=== PATIENT | female | born 1975 | race Caucasian/White ===

== ENCOUNTER 2017-08-10 17:04 | Emergency (ER) | payer OTHER ==
[2017-08-10 17:16] VITALS: BP 134/49
--- NOTE | 2017-08-10 17:42 | UC ---
Throat Pain/Nasal Jose Alberto HPI - HPI Summary HPI Summary: Five days of sinus congestion, facial pressure, cough. No fever. - History of Current Complaint Chief Complaint: UCRespiratory Stated Complaint: SINUS CONGESTION Time Seen by Provider: 08/10/17 17:04 Hx Obtained From: Patient Hx Last Menstrual Period: mirena Onset/Duration: Gradual Onset, Lasting Days Severity: Moderate Cough: Nonproductive Associated Signs & Symptoms: Positive: Sinus Discomfort, Nasal Discharge - Epiglottits Risk Factors Epiglottis Risk Factors: Negative - Allergies/Home Medications Allergies/Adverse Reactions: Allergies Allergy/AdvReac Type Severity Reaction Status Date / Time Tramadol [From Ultram] AdvReac Intermediate Vomiting Verified 08/10/17 17:16 Home Medications: Home Medications Gabapentin CAP(*) [Neurontin 300 CAP(*)] 300 mg PO BID 08/10/17 [History Confirmed 08/10/17] PMH/Surg Hx/FS Hx/Imm Hx Previously Healthy: Yes - Surgical History Surgical History: Yes Surgery Procedure, Year, and Place: CHOLECYSTECTOMY--?2006. LEEP - Family History Known Family History: Positive: None - Social History Occupation: Employed Full-time Lives: With Family Alcohol Use: None Substance Use Type: None Smoking Status (MU): Never Smoked Tobacco Have You Smoked in the Last Year: No Review of Systems Constitutional: Negative Skin: Negative Eyes: Negative ENT: Nasal Discharge, Sinus Congestion, Sinus Pain/Tenderness Respiratory: Cough Cardiovascular: Negative Gastrointestinal: Negative Genitourinary: Negative Motor: Negative Neurovascular: Negative Musculoskeletal: Negative Neurological: Negative Psychological: Negative Is Patient Immunocompromised?: No All Other Systems Reviewed And Are Negative: Yes Physical Exam Triage Information Reviewed: Yes Appearance: Well-Appearing, No Pain Distress, Well-Nourished Vital Signs: Initial Vital Signs Temp 97.7 F 08/10/17 17:11 Pulse 74 08/10/17 17:11 Resp 18 08/10/17 17:11 BP 134/49 08/10/17 17:11 Pulse Ox 97 08/10/17 17:11 Vital Signs Reviewed: Yes Eye Exam: Normal ENT Exam: Normal ENT: Positive: Hearing grossly normal, Nasal congestion, TM bulging, TM dull Dental Exam: Normal Neck exam: Normal Neck: Positive: Supple, Nontender, No Lymphadenopathy Respiratory Exam: Other - cough Respiratory: Positive: Chest non-tender, Lungs clear, Normal breath sounds, No respiratory distress, No accessory muscle use Cardiovascular Exam: Normal Cardiovascular: Positive: RRR, No Murmur, Pulses Normal, Brisk Capillary Refill Abdominal Exam: Normal Musculoskeletal Exam: Normal Neurological Exam: Normal Psychological Exam: Normal Skin Exam: Normal Throat Pain/Nasal Course/Dx - Differential Dx/Diagnosis Differential Diagnosis/HQI/PQRI: Pharyngitis, Sinusitis, URI Provider Diagnoses: sinusitis; upper respiratory infection Discharge - Discharge Plan Condition: Stable Disposition: HOME Prescriptions: Amoxicillin/Clavulanate TAB* [Augmentin TAB 875*] 875 mg PO BID #20 tab Benzonatate CAP* [Tessalon 100 MG CAP*] 100 mg PO TID PRN #15 cap PRN Reason: Cough Patient Education Materials: Sinusitis (ED), Upper Respiratory Infection (ED) Forms: *Work Release Referrals: Matthew Tom MD [Primary Care Provider] -
== END 2017-08-10 17:47 | disposition home or self-care (01) ==
LOC: UCEAST 17:04
DX: J01.90 Acute sinusitis, unspecified (principal)
CPT/HCPCS: 99212; G0463

== ENCOUNTER 2017-10-17 09:46 | Emergency (ER) | payer SELFPAY ==
--- NOTE | 2017-10-17 10:24 | UC ---
Upper Extremity HPI - HPI Summary HPI Summary: 41 year old female presents with complains of left hand blunt trauma. - History of Current Complaint Stated Complaint: LEFT HAND INJURY (wc) Time Seen by Provider: 10/17/17 10:23 Hx Obtained From: Patient Hx Last Menstrual Period: mirena Onset/Duration: Sudden Onset Severity Initially: Moderate Severity Currently: Moderate Pain Scale Used: 0-10 Numeric - 7 Character: Sharp - Allergies/Home Medications Allergies/Adverse Reactions: Allergies Allergy/AdvReac Type Severity Reaction Status Date / Time Tramadol [From Ultram] AdvReac Intermediate Nausea Verified 10/17/17 10:24 Home Medications: Home Medications Control Pill 1 tab PO DAILY 10/17/17 [History Confirmed 10/17/17] PMH/Surg Hx/FS Hx/Imm Hx Previously Healthy: Yes - Surgical History Surgical History: Yes Surgery Procedure, Year, and Place: CHOLECYSTECTOMY--?2006. LEEP - Family History Known Family History: Positive: None - Social History Alcohol Use: None Substance Use Type: None Smoking Status (MU): Never Smoked Tobacco Have You Smoked in the Last Year: No Review of Systems Constitutional: Negative Skin: Negative Eyes: Negative ENT: Negative Respiratory: Negative Cardiovascular: Negative Gastrointestinal: Negative Genitourinary: Negative Motor: Negative Neurovascular: Negative Musculoskeletal: Other: - left hand pain Neurological: Negative Psychological: Negative All Other Systems Reviewed And Are Negative: Yes Physical Exam Triage Information Reviewed: Yes Vital Signs Reviewed: Yes Eye Exam: Normal ENT Exam: Normal Dental Exam: Normal Neck exam: Normal Neck: Positive: 1 Respiratory Exam: Normal Cardiovascular Exam: Normal Abdominal Exam: Normal Musculoskeletal: Positive: Other: - left hand pain Neurological Exam: Normal Psychological Exam: Normal Skin Exam: Normal Upper Extremity Course/Dx - Differential Dx/Diagnosis Provider Diagnoses: left hand pain Discharge - Discharge Plan Condition: Stable Disposition: HOME Prescriptions: Ibuprofen TAB* [Motrin TAB* 800 MG] 800 mg PO Q6H #30 tab Patient Education Materials: Wrist Sprain (ED) Referrals: Elton Diez MD [Medical Doctor] - Liliam Agrawal MD [Primary Care Provider] -
[2017-10-17 10:28] VITALS: BP 143/75
--- NOTE | 2017-10-17 10:51 | RAD ---
INDICATION: Left hand injury. TECHNIQUE: 4 views of the left hand were obtained. FINDINGS: The bones are in normal alignment. No fracture is seen. Joint spaces appear maintained. IMPRESSION: NO EVIDENCE FOR FRACTURE.
== END 2017-10-17 11:08 | disposition home or self-care (01) ==
LOC: UCCORT 09:46
DX: M79.642 Pain in left hand (principal)
CPT/HCPCS: 99213; G0463

== ENCOUNTER 2017-11-24 19:05 | Emergency (ER) | payer OTHER ==
[2017-11-24 19:24] VITALS: BP 126/60
--- NOTE | 2017-11-24 19:49 | UC ---
Dakota Tabor Natalie, scribed for Cornelio Potts MD on 11/24/17 at 1937 . Respiratory Complaint HPI - HPI Summary HPI Summary: The pt is a 42 y/o F presenting to c/o upper respiratory symptoms starting . Pt additionally c/o chest pain and tightness with heavy coughing, "burning" productive cough, nasal drainage, headache, and sinus pressure. Pt denies fever and sore throat. - History of Current Complaint Chief Complaint: UCRespiratory Stated Complaint: URI Hx Obtained From: Patient Hx Last Menstrual Period: 11/13/17 Onset/Duration: Lasting Days - started 11/19/17, Still Present Severity Initially: Moderate Severity Currently: Moderate Character: Cough: Productive Aggravating Factors: Nothing Alleviating Factors: Nothing Associated Signs And Symptoms: Positive: Pleuritic Chest Pain, Nasal Congestion , Hoarseness. Negative: Fever - Allergies/Home Medications Allergies/Adverse Reactions: Allergies Allergy/AdvReac Type Severity Reaction Status Date / Time Tramadol [From Ultram] AdvReac Intermediate Nausea Verified 11/24/17 19:24 PMH/Surg Hx/FS Hx/Imm Hx - Surgical History Surgical History: Yes Surgery Procedure, Year, and Place: CHOLECYSTECTOMY--?2006. LEEP - Family History Known Family History: Positive: Cardiac Disease, Hypertension - Social History Alcohol Use: None Substance Use Type: None Smoking Status (MU): Never Smoked Tobacco Have You Smoked in the Last Year: No - Immunization History Most Recent Influenza Vaccination: Not the 2017/2017 Season Review of Systems ENT: Nasal Discharge, Sinus Congestion Respiratory: Cough Cardiovascular: Chest Pain - and tightness Neurological: Headache All Other Systems Reviewed And Are Negative: Yes Physical Exam Triage Information Reviewed: Yes Appearance: Well-Appearing, No Pain Distress Vital Signs: Initial Vital Signs Temp 98.0 F 11/24/17 19:19 Pulse 99 11/24/17 19:19 Resp 18 11/24/17 19:19 BP 126/60 11/24/17 19:19 Pulse Ox 99 11/24/17 19:19 Vital Signs Reviewed: Yes Eyes: Positive: Conjunctiva Clear ENT: Positive: Pharynx normal, Nasal congestion, Nasal drainage, TMs normal. Negative: Muffled voice, Hoarse voice Neck: Positive: Supple, Nontender Respiratory: Positive: Lungs clear, Normal breath sounds, No respiratory distress Cardiovascular: Positive: RRR, No Murmur Musculoskeletal: Positive: ROM Intact Neurological: Positive: Alert Psychological: Positive: Normal Response To Family, Age Appropriate Behavior Skin Exam: Normal UC Diagnostic Evaluation - Laboratory O2 Sat by Pulse Oximetry: 99 Respiratory Course/Dx - Course Course Of Treatment: 42 yr old with URI symptoms for five days and coughing. will Rx with neg influenza. Dc home good condition - Differential Dx/Diagnosis Provider Diagnoses: upper respiratory infection. Discharge - Discharge Plan Condition: Good Disposition: HOME Patient Education Materials: Upper Respiratory Infection (ED) Referrals: Liliam Agrawal MD [Primary Care Provider] - The documentation as recorded by the Dakota stoddard Natalie accurately reflects the service I personally performed and the decisions made by Delroy larson Walter, MD.
== END 2017-11-24 19:57 | disposition home or self-care (01) ==
LOC: UCEAST 19:05
DX: J06.9 Acute upper respiratory infection, unspecified (principal); Z88.5 Allergy status to narcotic agent
CPT/HCPCS: 87502; 99211; G0463

== ENCOUNTER 2017-11-29 16:23 | Emergency (ER) | payer OTHER ==
[2017-11-29 16:34] VITALS: BP 150/72
--- NOTE | 2017-11-29 16:45 | UC ---
Ear Complaint HPI - HPI Summary HPI Summary: Started getting sick about [address], nasal congestion, cough, wheezing, and post-tussive vomiting. Was seen on 11/24/17, dx-ed with viral illness. Has been using her albuterol inhaler every 2 hours while awake and is coughing to the point of vomiting at night when she lies down multiple times. For about 3-4 days has noticed that L ear feels plugged, gets occasional sharp pains in it. Denies new fevers or drainage from ear. - History of Current Complaint Stated Complaint: EAR ACHE Time Seen by Provider: 11/29/17 16:26 Hx Obtained From: Patient Hx Last Menstrual Period: 11/13/17 ?: No Onset/Duration: Gradual Onset, Lasting Days Severity Initially: Moderate Severity Currently: Moderate Aggravating Factors: Other - lying down Alleviating Factors: Other (Noted In Comments) - inhaler Associated Signs/Symptoms: Positive: URI Symptoms - Allergies/Home Medications Allergies/Adverse Reactions: Allergies Allergy/AdvReac Type Severity Reaction Status Date / Time Tramadol [From Ultram] AdvReac Intermediate Nausea Verified 11/29/17 16:34 PMH/Surg Hx/FS Hx/Imm Hx Respiratory History: Asthma - "with colds" Cancer History: Cervical Cancer - leep procedure - Surgical History Surgical History: Yes Surgery Procedure, Year, and Place: CHOLECYSTECTOMY--?2006. LEEP - Family History Known Family History: Positive: None, Cardiac Disease, Hypertension - Social History Occupation: Employed Full-time Alcohol Use: None Substance Use Type: None Smoking Status (MU): Never Smoked Tobacco Have You Smoked in the Last Year: No - Immunization History Most Recent Influenza Vaccination: Not the Season Review of Systems Constitutional: Fatigue Skin: Negative Eyes: Negative ENT: Sore Throat, Ear Ache, Nasal Discharge Respiratory: Cough Cardiovascular: Negative Gastrointestinal: Negative Genitourinary: Negative Motor: Negative Neurovascular: Negative Musculoskeletal: Negative Neurological: Negative Psychological: Negative Is Patient Immunocompromised?: No All Other Systems Reviewed And Are Negative: Yes Physical Exam Triage Information Reviewed: Yes Appearance: Well-Nourished, Ill-Appearing Vital Signs: Initial Vital Signs Temp 97.8 F 11/29/17 16:32 Pulse 100 11/29/17 16:32 Resp 16 11/29/17 16:32 BP 150/72 11/29/17 16:32 Pulse Ox 98 11/29/17 16:32 Vital Signs Reviewed: Yes Eye Exam: Normal Eyes: Positive: Conjunctiva Clear ENT: Positive: Pharynx normal, Nasal congestion, TMs normal - air-fluid level noted behind L TM, no L TM inflammation or bulging, Hoarse voice. Negative: TM bulging, TM dull, TM red Dental Exam: Normal Neck exam: Normal Neck: Positive: Supple, Nontender, No Lymphadenopathy Respiratory Exam: Other - constant dry cough, cough provoked with speaking or deep breaths Respiratory: Positive: Normal breath sounds. Negative: Respiratory distress, Accessory muscle use Cardiovascular: Positive: No Murmur, Tachycardia - constant coughing Musculoskeletal Exam: Normal Neurological Exam: Normal Neurological: Positive: Alert Psychological Exam: Normal Skin Exam: Normal Ear Complaint Course/Dx - Differential Dx/Diagnosis Provider Diagnoses: L serous otitis. acute viral bronchitis. bronchospasm Discharge - Discharge Plan Condition: Stable Disposition: HOME Prescriptions: Acetaminop/Codeine 30 MG TAB* [Tylenol/Codeine 30 MG TAB*] 1 - 2 tab PO BEDTIME PRN #14 tab MDD 2 PRN Reason: cough Benzonatate [Benzonatate 200 MG] 200 mg PO TID PRN #30 cap PRN Reason: cough Fluticasone HFA 110 mcg(NF) [Flovent HFA 110 mcg(NF)] 2 puff INH BID #1 mdi predniSONE TAB* [Deltasone TAB*] 50 mg PO DAILY #4 tab Patient Education Materials: Acute Bronchitis (ED), Bronchospasm (ED), Serous Otitis Media (ED) Referrals: Liliam Agrawal MD [Primary Care Provider] - Additional Instructions: As we discussed, I expect your symptoms to start to improve within the next few days. If you are still having trouble breathing or significant coughing that disrupts your sleep by Thursday, please see someone at [facility] for a recheck. I recommend you stay on the flovent inhaler for at least a month since we are in the coldest part of the winter and it can take that long for your airways to fully heal.
== END 2017-11-29 16:51 | disposition home or self-care (01) ==
LOC: UCEAST 16:23
DX: H65.92 Unspecified nonsuppurative otitis media, left ear (principal); J20.8 Acute bronchitis due to other specified organisms
CPT/HCPCS: 99211; G0463

== ENCOUNTER 2018-05-24 18:45 | Emergency (ER) | payer OTHER ==
[2018-05-24] MEDS ORDERED: Aspirin 81 mg CHEW TAB* 81 MG TAB.CHEW PO ONE (19:04)
[2018-05-24 19:24] VITALS: BP 125/79
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
== END 2018-05-24 19:22 | disposition home or self-care (01) ==
LOC: UCEAST 18:45
DX: R07.89 Other chest pain (principal); M79.602 Pain in left arm; F41.9 Anxiety disorder, unspecified; Z88.5 Allergy status to narcotic agent
CPT/HCPCS: 93005; 99212; A9270-GY; G0463

== ENCOUNTER 2018-05-24 19:52 | Emergency (ER) | payer OTHER ==
[2018-05-24] MEDS ORDERED: ALPRAZolam TAB* 0.5 MG PO ONE (20:18)
[2018-05-24 20:34] LABS: ABS Basophils 0.1 10^3/ul (0-0.2); ABS Eosinophils 0.2 10^3/ul (0-0.6); ABS Lymphocytes 2.7 10^3/ul (1.0-4.8); ABS Monocytes 0.6 10^3/ul (0-0.8); ABS Neutrophils 5.6 10^3/ul (1.5-7.7); ABS Nucleated RBC 0 10^3/ul; Eosinophil % 2.3 % (0-6); Hematocrit 36 % (35-47); Hemoglobin 12.2 g/dl (12.0-16.0); Lymphocyte % 29.7 % (25-47); Mean Corpuscular HGB Conc 34 g/dl (31-36); Mean Corpuscular Hemoglobin 30 pg (27-31); Mean Corpuscular Volume 89 fL (80-97); Mean Platelet Volume 8.6 um3 (7.4-10.4); Nucleated Red Blood Cells % 0; Platelet Count 284 10^3/ul (150-450); Red Blood Count 4.05 10^6/ul (4.00-5.40); Red Cell Distribution Width 14 % (10.5-15); White Blood Count 9.2 10^3/ul (3.5-10.8)
[2018-05-24 20:42] LABS: INR 0.89 (0.77-1.02)
[2018-05-24 20:58] LABS: EGFR Non-African American 75.1 (>60)
[2018-05-24 21:25] VITALS: BP 138/88
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
== END 2018-05-24 21:24 | disposition home or self-care (01) ==
LOC: ED 19:52
DX: R07.89 Other chest pain (principal); F41.9 Anxiety disorder, unspecified; F41.0 Panic disorder [episodic paroxysmal anxiety]; Z88.5 Allergy status to narcotic agent
CPT/HCPCS: 36415; 80053; 82550; 83735; 84484; 84702; 85025; 85610; 85730; 93005; 99283; A9270-GY

== ENCOUNTER 2018-07-18 20:13 | Emergency (ER) | payer OTHER ==
[2018-07-18 20:23] VITALS: BP 121/75
--- NOTE | 2018-07-18 21:01 | UC ---
Hand/Wrist HPI - HPI Summary HPI Summary: hit wrist (right) on a counter this morning while at work pain and bruising on ulnar aspect of right wrist n/m/c intact - History Of Current Complaint Chief Complaint: UCUpperExtremity Stated Complaint: R WRIST ELBOW INJURY Time Seen by Provider: 07/18/18 20:48 Hx Obtained From: Patient Hx Last Menstrual Period: NOW ?: No Onset/Duration: Sudden Onset Pain Intensity: 7 Pain Scale Used: 0-10 Numeric Character Of Pain: Aching Aggravating Factor(s): Movement Alleviating Factor(s): Rest, Ice Associated Signs And Symptoms: Positive: Negative Related History: Dominant Hand Right - Allergies/Home Medications Allergies/Adverse Reactions: Allergies Allergy/AdvReac Type Severity Reaction Status Date / Time tramadol [From [facility]] Allergy Severe N/V Verified 07/18/18 20:23 Home Medications: Home Medications Control* 1 tab PO DAILY 07/18/18 [History Confirmed 07/18/18] Gabapentin CAP(*) [Neurontin 300 CAP(*)] 300 mg PO TID 07/18/18 [History Confirmed 07/18/18] Ibuprofen TAB* [Advil TAB*] 800 mg PO ONCE PRN 07/18/18 [History Confirmed 07/18] QUEtiapine TAB* [Seroquel 25 MG TAB*] 50 mg PO DAILY 07/18/18 [History Confirmed 07/18/18] Sertraline* [Zoloft*] 150 mg PO DAILY 07/18/18 [History Confirmed 07/18/18] PMH/Surg Hx/FS Hx/Imm Hx Previously Healthy: No Psychological History: Depression - Surgical History Surgical History: Yes Surgery Procedure, Year, and Place: CHOLECYSTECTOMY--?2006. LEEP - Family History Known Family History: Positive: None, Cardiac Disease, Hypertension - Social History Occupation: Employed Full-time Lives: With Family Alcohol Use: None Substance Use Type: None Smoking Status (MU): Never Smoked Tobacco Have You Smoked in the Last Year: No - Immunization History Most Recent Influenza Vaccination: Not the 2016/2017 Season Review of Systems Constitutional: Negative Skin: Negative Eyes: Negative ENT: Negative Respiratory: Negative Cardiovascular: Negative Gastrointestinal: Negative Genitourinary: Negative Motor: Negative Neurovascular: Negative Musculoskeletal: Arthralgia - radial aspect of right wrist with bruising Neurological: Negative Psychological: Negative Is Patient Immunocompromised?: No All Other Systems Reviewed And Are Negative: Yes Physical Exam Triage Information Reviewed: Yes Appearance: Well-Appearing, No Pain Distress, Well-Nourished Vital Signs: Initial Vital Signs Temp 97.5 F 07/18/18 20:19 Pulse 78 07/18/18 20:19 Resp 16 07/18/18 20:19 BP 121/75 07/18/18 20:19 Pulse Ox 97 07/18/18 20:19 Vital Signs Reviewed: Yes Eye Exam: Normal Eyes: Positive: Conjunctiva Clear ENT Exam: Normal ENT: Positive: Normal ENT inspection, Hearing grossly normal. Negative: Trismus , Hoarse voice Dental Exam: Normal Neck exam: Normal Neck: Positive: Supple, Nontender, No Lymphadenopathy Respiratory Exam: Normal Respiratory: Positive: Chest non-tender, Normal breath sounds, No respiratory distress, No accessory muscle use Cardiovascular Exam: Normal Cardiovascular: Positive: RRR, Pulses Normal, Brisk Capillary Refill Musculoskeletal Exam: Normal Musculoskeletal: Positive: Strength Intact, ROM Intact, No Edema Neurological Exam: Normal Neurological: Positive: Alert, Muscle Tone Normal Psychological Exam: Normal Skin Exam: Normal Hand/Wrist Course/Dx - Course Course Of Treatment: rice, splint, ibuprofen, work limits, follow with pcp or ortho prn - Differential Dx/Diagnosis Provider Diagnoses: right wrisrt contusion Discharge - Sign-Out/Discharge Documenting (check all that apply): Patient Departure All imaging exams completed and their final reports reviewed: No - Discharge Plan Condition: Stable Disposition: HOME Patient Education Materials: Ibuprofen (By mouth), Contusion in Adults (ED), R.I.C.E. Treatment (ED) Forms: *Work Release Referrals: Liliam Agrawal MD [Primary Care Provider] - Matthew Mock MD [Medical Doctor] - If Needed - Billing Disposition and Condition Condition: STABLE Disposition: Home
--- NOTE | 2018-07-19 07:58 | RAD ---
INDICATION: Wrist pain after wrist versus kelley register. COMPARISON: None. TECHNIQUE: 3 views right wrist. REPORT: The visualized bones are properly aligned and well corticated. The joint spaces are normal.There is no fracture, dislocation or other focal osseous abnormality. IMPRESSION: Normal radiograph of the right wrist. If the patient's symptoms persist, follow-up imaging is recommended. R0
--- NOTE | 2018-07-19 09:22 | UC ---
- Progress Note Progress Note: images reviewed Discharge - Sign-Out/Discharge Documenting (check all that apply): Post-Discharge Follow Up All imaging exams completed and their final reports reviewed: Yes - Discharge Plan Condition: Stable Disposition: HOME Patient Education Materials: Ibuprofen (By mouth), Contusion in Adults (ED), R.I.C.E. Treatment (ED) Forms: *Work Release Referrals: Mtathew Mock MD [Medical Doctor] - If Needed Liliam Agrawal MD [Primary Care Provider] - - Billing Disposition and Condition Condition: STABLE Disposition: Home
== END 2018-07-18 21:15 | disposition home or self-care (01) ==
LOC: UCEAST 20:13
DX: S60.211A Contusion of right wrist, initial encounter (principal); F32.9 Major depressive disorder, single episode, unspecified; Z79.899 Other long term (current) drug therapy; W22.8XXA Striking against or struck by other objects, initial encounter; Z88.5 Allergy status to narcotic agent; Y92.9 Unspecified place or not applicable; Y99.0 Civilian activity done for income or pay
CPT/HCPCS: 99213; G0463

== ENCOUNTER 2019-02-02 19:18 | Emergency (ER) | payer OTHER ==
[2019-02-02 19:59] VITALS: BP 118/75
--- NOTE | 2019-02-02 21:18 | UC ---
Throat Pain/Nasal Jose Alberto HPI - HPI Summary HPI Summary: 43-year-old female presents with 10 day history of headache, nasal congestion, sinus pain and pressure, and left ear fullness. States has felt hot and cold. Denies visual disturbances, dizziness, vertigo, tinnitus, ear drainage, sore throat, cough, chest pain, or shortness of breath. - History of Current Complaint Chief Complaint: UCGeneralIllness Stated Complaint: CONGESTED Time Seen by Provider: 02/02/19 21:05 Hx Obtained From: Patient Hx Last Menstrual Period: [id number] Pain Intensity: 7 - Allergies/Home Medications Allergies/Adverse Reactions: Allergies Allergy/AdvReac Type Severity Reaction Status Date / Time tramadol [From [facility]] Allergy Severe N/V Verified 02/02/19 19:59 Home Medications: Home Medications traZODone TAB* [Desyrel TAB*] 100 mg PO BEDTIME 02/02/19 [History Confirmed ] PMH/Surg Hx/FS Hx/Imm Hx Previously Healthy: Yes Psychological History: Anxiety, Depression - Surgical History Surgical History: Yes Surgery Procedure, Year, and Place: CHOLECYSTECTOMY--?2006. LEEP - Family History Known Family History: Positive: None, Cardiac Disease, Hypertension - Social History Occupation: Employed Full-time Lives: With Family Alcohol Use: None Substance Use Type: None Smoking Status (MU): Never Smoked Tobacco Have You Smoked in the Last Year: No - Immunization History Most Recent Influenza Vaccination: Not the 2017/2018 Season Review of Systems All Other Systems Reviewed And Are Negative: Yes Constitutional: Negative: Fever, Chills Skin: Negative: Rash Eyes: Negative: Drainage, Eye Redness ENT: Positive: Ear Ache, Nasal Discharge, Sinus Congestion, Sinus Pain/ Tenderness. Negative: Sore Throat Respiratory: Negative: Shortness Of Breath, Cough Cardiovascular: Negative: Palpitations, Chest Pain Gastrointestinal: Negative: Abdominal Pain, Vomiting, Diarrhea, Nausea Genitourinary: Positive: Negative Musculoskeletal: Positive: Negative Neurological: Positive: Negative Is Patient Immunocompromised?: No Physical Exam - Summary Physical Exam Summary: GENERAL APPEARANCE: Well developed, well nourished, alert and cooperative, and appears to be in no acute distress. EYES: Conjunctiva clear. No drainage. Vision is grossly intact. EARS: External auditory canals and tympanic membranes clear, hearing grossly intact. NOSE: Moderate nasal congestion. No discharge. Bilateral maxillary sinus tenderness. THROAT: Pharynx normal. No tonsilar inflammation, swelling, exudate, or lesions. Uvula midline. Oral cavity normal. Teeth and gingiva in good general condition. NECK: Neck supple, non-tender without lymphadenopathy. CARDIAC: Normal S1 and S2. No S3, S4 or murmurs. Rhythm is regular. There is no peripheral edema, cyanosis or pallor. Extremities are warm and well perfused. Capillary refill is less than 2 seconds. Peripheral pulses intact. LUNGS: Clear to auscultation without rales, rhonchi, wheezing or diminished breath sounds. ABDOMEN: Positive bowel sounds. Soft, nondistended, nontender. No guarding or rebound. No masses or hepatosplenomegally. MUSKULOSKELETAL: ROM intact to all extremities. No joint erythema or tenderness. Normal muscular development. Normal gait. SKIN: Skin normal color, texture and turgor with no lesions or eruptions. Triage Information Reviewed: Yes Vital Signs: Initial Vital Signs Temp 98.8 F 02/02/19 19:53 Pulse 69 02/02/19 19:53 Resp 20 02/02/19 19:53 BP 118/75 02/02/19 19:53 Pulse Ox 99 02/02/19 19:53 Vital Signs Reviewed: Yes Throat Pain/Nasal Course/Dx - Course Course Of Treatment: 43-year-old female presents with 10 day history of headache , nasal congestion, sinus pain and pressure, and left ear fullness. States has felt hot and cold. Denies visual disturbances, dizziness, vertigo, tinnitus, ear drainage, sore throat, cough, chest pain, or shortness of breath. Afebrile. Vital signs stable. Exam reveals an adult female in no acute distress with moderate nasal congestion, bilateral maxillary sinus tenderness with percussion, and otherwise unremarkable exam. Considering the duration of her symptoms I will treat her for an acute maxillary sinusitis with Augmentin 875 mg twice a day 10 days. First dose was given here in the clinic. Also recommending symptomatic treatment including fluticasone nasal spray, saline rinses, [id number] analgesics, and [id number] decongestant. She is to follow-up with her primary care provider in 7 days if symptoms do not improve. Anticipatory guidance and warning symptoms were reviewed with the patient. Verbalizes understanding and agrees with plan of care. - Differential Dx/Diagnosis Differential Diagnosis/HQI/PQRI: Pharyngitis, Sinusitis, Tonsillitis, URI Provider Diagnosis: Acute maxillary sinusitis Discharge - Sign-Out/Discharge Documenting (check all that apply): Patient Departure All imaging exams completed and their final reports reviewed: No Studies - Discharge Plan Condition: Stable Disposition: HOME Prescriptions: Amoxicillin/Clavulanate TAB* [Augmentin TAB 875*] 875 mg PO BID #19 tab Fluticasone NASAL SPRAY 50MCG* [Flonase NASAL SPRAY 50MCG*] 2 spray BOTH NARES DAILY #1 btl Patient Education Materials: Sinusitis (ED) Referrals: Liliam Agrawal MD [Primary Care Provider] - 7 Days (If no improvement.) Additional Instructions: Your history and exam are consistent with a sinus infection. Considering the duration of your symptoms we will treat you with an antibiotic. Start Augmentin 1 tab twice a day for 10 days. Take with food to avoid upset stomach. Be sure to complete the entire course even if feeling better. We gave you the first dose in the clinic. Drink plenty of fluids to avoid dehydration especially if you are running any fever. Use a saline rinse kit such as Neti Pot or NeilMed at least twice a day to help thin secretions and promote drainage of the sinuses. Use fluticasone (Flonase) nasal spray 2 sprays each nostril once daily. Use an over the counter decongestant such as Sudafed according to directions to help with congestion. Take over the counter acetaminophen (Tylenol) or ibuprofen (Advil, Motrin) according to directions as needed for pain or fever. Follow up with your primary care provider in 7 days if symptoms persist. Seek immediate medical attention in the emergency room if you have fever greater than 100.5 F despite taking acetaminophen or ibuprofen, have chest pain , difficulty breathing, are unable to swallow, or have any worsening of symptoms. - Billing Disposition and Condition Condition: STABLE Disposition: Home
[2019-02-02] MEDS ORDERED: Amoxicillin/Clavulanate TAB* 875 MG PO ONE (21:30)
== END 2019-02-02 21:46 | disposition home or self-care (01) ==
LOC: UCEAST 19:18
DX: J01.00 Acute maxillary sinusitis, unspecified (principal); Z88.5 Allergy status to narcotic agent
CPT/HCPCS: 99212; A9270-GY; G0463